=== PATIENT | male | born 1970 | race Two or more races ===

== ENCOUNTER 2021-06-07 13:09 | Emergency (ER) | payer SELFPAY ==
[~2021-06-07] VITALS: Ht 182.9 cm; Wt 94.0 kg
[2021-06-07 13:11] VITALS: BP 141/90
[2021-06-07] MEDS ORDERED: BOOSTRIX/ADACEL VACCINE (DIPHTH/PERTUSS/ACELL/TETANUS) 0.5ML SYR IM ONE (13:45)
[2021-06-07] MEDS ORDERED: BACITRACIN OINTMENT 30GM TUBE TOP ONE (13:55)
== END 2021-06-07 14:14 | disposition home or self-care (01) ==
LOC: M ED 13:09 → EDSEX 13:09 → M ED 14:14
DX: S61.412A Laceration without foreign body of left hand, initial encounter (principal); W25.XXXA Contact with sharp glass, initial encounter; Y92.9 Unspecified place or not applicable; Y93.9 Activity, unspecified; Y99.9 Unspecified external cause status